=== PATIENT | male | born 1940 | race Caucasian/White ===

== ENCOUNTER → 2016-10-18 | Outpatient (CLI) | payer OTHER | LOC: FIMAGING 10:18 | PROVIDERS: ATTEND Internal Medicine Critical Care Medicine | DX: R91.1 Solitary pulmonary nodule (principal) ==

== ENCOUNTER → 2017-04-04 | Outpatient (CLI) | payer OTHER | LOC: BHFA 09:00 | PROVIDERS: ATTEND Internal Medicine Cardiovascular Disease | DX: I48.91 Unspecified atrial fibrillation (principal) ==

== ENCOUNTER 2017-06-14 09:02 | Observation (INO) | payer OTHER ==
[2017-06-14] MEDS ORDERED: NS 1,000 ML IV ONE (09:03)
[2017-06-14] MEDS ORDERED: DIAZEPAM 5 MG TAB PO ONE (09:03)
[2017-06-14] MEDS ORDERED: ceFAZolin 2 GM/SWFI 2 GM/20 ML SYR IVP ONE (09:03)
[2017-06-14] MEDS ORDERED: BACITRACIN IRRIGATION/NS 50,000 UNITS/1,000 ML BTL IRR ONE (09:03)
[2017-06-14] MEDS ORDERED: diphenhydrAMINE 25 MG CAP PO ONE ×2 (09:03→09:30)
--- NOTE | 2017-06-14 09:19 | PDHPUP ---
History & Physical Update H&P update statement: This history and physical update is based on an assessment of the patient which was completed after admission or registration (within 24 hours), but prior to the surgery/procedure. H&P update: H&P reviewed & patient examined, no change in patient's condition since H&P completed
--- NOTE | 2017-06-14 09:19 | PDPROPOC ---
Sedation Plan of Care Sedation Plan of Care: vital signs stable, mental status noted, patient educated of risks, benefits, alternatives, patient can tolerate sedation ASA Classification: ASA 3 Planned drugs: fentanyl, midazolam Mallampati Score: Class 3 Mallampati Reference Image: Patient passed 3-3-2 rule?: Yes
--- NOTE | 2017-06-14 09:24 | CPEKG ---
Heart Rate: 65 RR Interval: 923 P-R Interval: 188 QRSD Interval: 80 QT Interval: 412 QTC Interval: 429 P [place]: 48 QRS [place]: 10 T Wave [place]: 70 EKG Severity - ABNORMAL ECG - EKG Impression: SINUS RHYTHM EKG Impression: MULTIPLE VENTRICULAR PREMATURE COMPLEXES Electronically Signed By: Batool Jarrell 14-Jun-2017 10:37:20
[2017-06-14] MEDS ORDERED: DIAZEPAM 5 MG TAB ONE (09:30)
[2017-06-14 09:47] LABS: % IMMATURE GRANULYOCYTES 0.2 % (0.0-1.1); ABSOLUTE IMMATURE GRANULOCYTES 0.01 10^3/uL (0.00-0.10); ADD DIFF? NO; ADD MORPH? NO; ADD SCAN? NO; ATYPICAL LYMPHOCYTE FLAG 10 (0-99); FRAGMENT RBC FLAG 0 (0-99); HEMATOCRIT 43.5 % (40.0-51.0); HEMOGLOBIN 15.6 g/dL (13.7-17.5); LEFT SHIFT FLG 0 (0-99); LIPEMIA HEMOLYSIS FLAG 90 (0-99); MEAN CELL HEMOGLOBIN 32.9 pg (27.9-34.1); MEAN CELL HEMOGLOBIN CONCENTR. 35.9 g/dL (32.4-36.7); MEAN CELL VOLUME 91.8 fL (81.5-99.8); MEAN PLATELET VOLUME 10.6 fL (8.7-11.7); PLATELET CLUMPS FLAG 0 (0-99); PLATELET COUNT 147 10^3/uL (150-400); RED BLOOD CELL COUNT 4.74 10^6/uL (4.40-6.38); RED CELL DISTRIBUTION WIDTH 14.3 % (11.5-15.2)
[2017-06-14 09:56] LABS: INR 1.12 (0.83-1.16); PROTIME(PATIENT) 14.6 SEC (12.0-15.0)
[2017-06-14 09:58] LABS: ANION GAP 12 mEq/L (8-16); CALCIUM 9.4 mg/dL (8.5-10.4); CARBON DIOXIDE 23 mEq/l (22-31); CHLORIDE 109 mEq/L (97-110); GLOMERULAR FILTRATION RATE > 60; GLUCOSE 111 mg/dL (70-100); POTASSIUM 4.3 mEq/L (3.5-5.2); SODIUM 144 mEq/L (134-144)
[2017-06-14] MEDS ORDERED: LIDOCAINE 1% 300 MG/30 ML SDV ONE (11:08)
[2017-06-14] MEDS ORDERED: fentaNYL 100 MCG/2 ML INJ ONE (11:08)
[2017-06-14] MEDS ORDERED: MIDAZOLAM 2 MG/2 ML VIAL ONE (11:08)
[2017-06-14] MEDS ORDERED: LIDO/EPI 1% **for epidural** 30 ML SDV ONE (11:09)
[2017-06-14] MEDS ORDERED: BUPIVACAINE 0.5% 30 ML SDV ONE (11:09)
[2017-06-14] MEDS ORDERED: IOPAMIDOL (ISOVUE-300) 150 ML BTL ONE (11:48)
--- NOTE | 2017-06-14 12:23 | EPPROC ---
Electrophysiology Procedure Note: PROCEDURE: MRI conditional dual-chamber pacemaker insertion. DATE OF PROCEDURE: 06/14/2017. DEVICE: Implanted is an Edora 8 -Aminah [id number], serial # [id number]. MRI conditional device. LEADS: The atrial lead is a Solia S 53, serial #[id number]. The ventricular lead is a Solia S 60, serial # [id number]. COMPLICATIONS: None CATTERY OPERATOR: David Abreu MD INDICATION AND APPROPRIATE USE CRITERIA: Symptomatic sick sinus syndrome severe sinus bradycardia with frequent pvc s requiring beta blockade PROCEDURE IN DETAIL: After informed consent was obtained and n.p.o. status was confirmed, the region of the left subclavicular fossa was cleaned, prepped and draped in a sterile fashion. Approximately 30 mL of 1% lidocaine was utilized for local anesthesia. The skin was sharply incised with a #10 blade. Electrocautery and local pressure were used for hemostasis. Sharp and blunt dissection was used to form a pacemaker pocket overlying the pectoralis major fascia. An 18-gauge Cook needle was used to gain access to the left subclavian vein x 2. J wires were advanced into the inferior vena cava. A 6-F peel-away sheath was advanced over the lateral wire. Wire and stylet were removed. Ventricular lead was manipulated with care into the RV apex under direct fluoroscopic guidance and screwed into place. Threshold was tested and found to be 0.6 V at 0.4 ms width. R-wave amplitude was measured at 9 mV. Lead impedance was 760 Ohms. The lead was sutured in place with #0 Ethibond. The medial wire was used to place a second peel-away sheath wire and dilator was removed and a second pacer lead was manipulated with care into the right atrial appendage and screwed into place. The threshold was 1.1 V at 0.4 ms width. P-wave amplitude was 1.2 mV, lead impedance was 468 Ohms. The peel away sheath was removed and the atrial lead was sutured in place with a #0 Ethibond. The pocket was thoroughly flushed and checked for bleeding. Hemostasis was established. The antibiotic soaked gauze was removed from the pocket. The atrial lead serial number was checked and placed in the upper pole lead housing of the pulse generator and set screw firmly applied. The procedure was repeated for the RV lead. The device was placed in the pocket and sutured in place with # 0 Ethibond. The skin was closed with a 3-layered 3-0 Vicryl, 2-0 Vicryl and 4-0 Monocryl repair with excellent wound edge opposition and hemostasis documented. The patient returned to the post cath recovery unit in good and stable condition where a stat postoperative chest x-ray and EKG will be obtained. FINAL IMPRESSION: Successful dual-chamber pacemaker insertion without immediate complication. Patient Problems: Problems Problem Status Onset Abdominal distention Acute Atrial fibrillation and flutter Acute Cellulitis Acute Ileus following gastrointestinal surgery Acute Near syncope Acute
--- NOTE | 2017-06-14 13:41 | CPEKG ---
Heart Rate: 75 RR Interval: 800 P-R Interval: 212 QRSD Interval: 82 QT Interval: 384 QTC Interval: 429 QRS [place]: -18 T Wave [place]: 76 EKG Severity - ABNORMAL ECG - EKG Impression: ATRIAL-PACED RHYTHM EKG Impression: BORDERLINE LEFT AXIS DEVIATION EKG Impression: BORDERLINE R WAVE PROGRESSION, ANTERIOR LEADS Electronically Signed By: Batool Jarrell 14-Jun-2017 17:02:18
[2017-06-14] MEDS ORDERED: FUROSEMIDE 40 MG TAB PO PRN (15:35)
[2017-06-14] MEDS ORDERED: FLUTICASONE NASAL PRN (15:35)
[2017-06-14] MEDS ORDERED: diphenhydrAMINE 25 MG CAP PO PRN (15:35)
[2017-06-14 15:43] VITALS: PULSE 75
[2017-06-14] MEDS ORDERED: ROSUVASTATIN CALCIUM 40 MG TAB PO SCH (21:00)
[2017-06-14] MEDS: ASPIRIN 81 MG CHEWABLE TAB PO SCH (21:39)
[2017-06-15 04:11] VITALS: O2SAT 96
[2017-06-15 05:28] LABS: % IMMATURE GRANULYOCYTES 0.1 % (0.0-1.1); ABSOLUTE IMMATURE GRANULOCYTES 0.01 10^3/uL (0.00-0.10); ADD DIFF? NO; ADD MORPH? NO; ADD SCAN? NO; ATYPICAL LYMPHOCYTE FLAG 0 (0-99); FRAGMENT RBC FLAG 0 (0-99); HEMATOCRIT 42.3 % (40.0-51.0); HEMOGLOBIN 14.7 g/dL (13.7-17.5); LEFT SHIFT FLG 0 (0-99); LIPEMIA HEMOLYSIS FLAG 90 (0-99); MEAN CELL HEMOGLOBIN 32.2 pg (27.9-34.1); MEAN CELL HEMOGLOBIN CONCENTR. 34.8 g/dL (32.4-36.7); MEAN CELL VOLUME 92.8 fL (81.5-99.8); MEAN PLATELET VOLUME 11.3 fL (8.7-11.7); PLATELET CLUMPS FLAG 20 (0-99); PLATELET COUNT 141 10^3/uL (150-400); RED BLOOD CELL COUNT 4.56 10^6/uL (4.40-6.38); RED CELL DISTRIBUTION WIDTH 14.5 % (11.5-15.2)
[2017-06-15 05:38] LABS: ANION GAP 10 mEq/L (8-16); CALCIUM 8.8 mg/dL (8.5-10.4); CARBON DIOXIDE 24 mEq/l (22-31); CHLORIDE 107 mEq/L (97-110); CREATININE 0.9 mg/dL (0.7-1.3); GLOMERULAR FILTRATION RATE > 60; GLUCOSE 88 mg/dL (70-100); POTASSIUM 4.3 mEq/L (3.5-5.2); SODIUM 141 mEq/L (134-144)
[2017-06-15 07:33] VITALS: BP 129/78; RESP 17; TEMP 97.8
[2017-06-15] MEDS: ASPIRIN 81 MG CHEWABLE TAB PO SCH (08:18)
--- NOTE | 2017-06-15 08:54 | CPEKG ---
Heart Rate: 75 RR Interval: 800 P-R Interval: 188 QRSD Interval: 80 QT Interval: 376 QTC Interval: 420 QRS [place]: -9 T Wave [place]: 76 EKG Severity - ABNORMAL ECG - EKG Impression: ATRIAL-PACED RHYTHM EKG Impression: BORDERLINE R WAVE PROGRESSION, ANTERIOR LEADS Electronically Signed By: Batool Jarrell 15-Jun-2017 10:49:23
--- NOTE | 2017-06-15 08:58 | ASMTCMCOM ---
CM Note CM Note Notes: Chart reviewed. Patient s/p PPM. No needs identified. Anticipate dc to home Independent. CM available should needs arise. Date Signed: 06/15/2017 08:58 AM Electronically Signed By:Geraldine Eden RN
[2017-06-15] MEDS ORDERED: MELOXICAM 7.5 MG PO SCH (09:00)
[2017-06-15] MEDS ORDERED: VERAPAMIL 80 MG TAB PO SCH (09:00)
--- NOTE | 2017-06-15 09:36 | GDS ---
[f rep st] DISCHARGE SUMMARY ADMISSION DIAGNOSES: 1. Symptomatic bradycardia. 2. Paroxysmal atrial fibrillation. 3. Hyperlipidemia. 4. Sleep apnea. DISCHARGE DIAGNOSES: 1. Symptomatic bradycardia status post permanent pacemaker implantation. Biotronik device with both with Biotronik atrial and ventricular leads. 2. Paroxysmal atrial fibrillation. 3. Hyperlipidemia. 4. Sleep apnea. PROCEDURES PERFORMED DURING HOSPITALIZATION: 1. Electrocardiogram. 2. Permanent pacemaker implantation with atrial and ventricular leads. Biotronik generator with Bio tronik atrial and ventricular leads. 3. Chest x-ray. 4. Pacemaker interrogation. BRIEF HISTORY: Please see H and P. Briefly, the patient is a 76-year-old male, he has been noticing significantly slower heart rates. He has recently been seen by Dr. Abreu, in which he has shown th at he has occasionally ventricular bigeminy with effective pulse rate of around 28 beats per minute. He has lightheadedness with these symptoms. After evaluation by Dr. Abreu, it was felt best that h e undergo permanent pacemaker implantation to help increase his heart rate and prevent any further ep isodes. HOSPITAL COURSE: The patient admitted through CVC, prepped for procedure, taken to the cardiac keren terization lab. There, Dr. Abreu successfully implanted a dual-chamber Biotronik pacemaker with atr ial and ventricular leads. No complications. The patient was taken back to the CVC and ultimately t o the PCU overnight. On the PCU, he has been noted to be atrial paced with intrinsic ventricular res ponse. He has been noted to have occasional PVC, small runs of bigeminy. He has been up and walking the unit, reporting that he has tolerated this well with no episodes of lightheadedness or shortness of breath. He denies any chest pressure or pain. PHYSICAL EXAMINATION: GENERAL APPEARANCE: A medium built, well-groomed, male. He is aler t and oriented to person, place, time, situation. Appears to be under no acute distress. VITAL SIGN S: Current vital signs are blood pressure 128/70, heart rate 75, respirations 17, saturating 95% on room air, temperature 36.6 degrees Celsius. HEENT: Head is normocephalic. Lips and tongue are pink moist with no signs of cyanosis. Conjunctivae pink. NECK: Trachea is midline, +2 carotid pulses b ilateral. No auscultated bruits. No jugular vein distention. RESPIRATORY: Lungs clear to ausculta tion, no rhonchi, rales or wheezes. No accessory muscle use. No intercostal muscle retraction noted . CARDIAC: Regular rate, regular rhythm. S1, S2. No S3, S4, gallops, rubs or murmurs noted. ABDO MEN: Soft, nontender, bowel sounds x4 quadrants. No organomegaly. No palpable masses. SKIN: [place] , warm, dry. No cyanosis. No clubbing. No peripheral edema. VASCULAR: +2 carotids bilateral, +2 radials bilateral, +2 dorsal pedal and posterior tibial pulses bilateral. PACEMAKER INSERTION: Left anterior chest, distal to the clavicle lateral chest. Incision intact with Steri-Strips. No rednes s, swelling, drainage, ecchymosis, or hematoma. Device dressing change done at this time. STUDIES: Laboratory studies drawn today show WBC 7.08, hemoglobin 14.7, hematocrit of 42.3, platelet count of 141, sodium 141, potassium 4.3, chloride 107, CO2 24, BUN 18, creatinine 0.9, glucose 88, c alcium 8.8. Cardiac pacemaker implantation done as mentioned above. Electrocardiogram done this morning showing atrial pace with intrinsic ventricular response showing l eft axis deviation with nonspecific T-wave abnormalities in inferior lateral leads. Chest x-ray is done, interpreted by myself, showing pacemaker in adequate position. No delayed pneum othorax. Home monitoring interrogation of pacemaker device done by [email or web address] rep today showing thresholds less than 1. R-waves greater than 10. Device functioning within normal limits. Biotronik rep will come in prior to the patient's discharge to do a full interrogation of the device. DISCHARGE DISPOSITION: The patient will be discharged home in stable condition. He is under activit y restrictions of not lifting the left arm higher than shoulder height for the next 6 weeks and not l ifting more than 10 pounds with the left arm for the next 6 weeks. DISCHARGE MEDICATIONS: Please see discharge med reconciliation sheet. DISCHARGE INSTRUCTIONS: Post pacemaker discharge instructions went over with the patient and his wif e, including monitoring for signs of infection, bleeding precautions, activity restrictions. The pat ient has a followup appointment for a device and wound check in our office next on the at 10:00 a.m. he will also follow up with one of our nurse practitioners on July 06, 2017. At the time of discharge, the patient and both verbalized understanding all instructions, have no questions. T hey are told if any problems or concerns, they are to contact our office or return to the hospital. Total time spent on discharge greater than 30 minutes. /[id number]/MODL
--- NOTE | 2017-06-15 15:36 | ASDISCHSUM ---
Discharge Information Plan Status:Home with No Needs Medically Cleared to Leave: Discharge Date:06/15/2017 10:33 AM CM D/C Disposition:Home, Routine, Self-Care ADT D/C Disposition:Home, Routine, Self-Care Projected Discharge Date:06/15/2017 10:33 AM Transportation at D/C:Family Discharge Delay Reason: Follow-Up Date:06/15/2017 10:33 AM Discharge Slot: Final Diagnosis: Placement Information Patient Contact Information Contact Name:BILLY Relationship: Address:[address] [place] [address] City:[place] Alternate Phone: State/Zip Code:[place] [address] Email: Financial Information Financial Class: Primary Plan Desc:MEDICARE OUTPATIENT Primary Plan Number:[id number] Secondary Plan Desc:MARY INDEMNITY Secondary Plan Number:[id number] Assessment Information [facility] CM Progress Note CM Note CM Note Notes: Chart reviewed. Patient s/p PPM. No needs identified. Anticipate dc to home Independent. CM available should needs arise. Date Signed: 06/15/2017 08:58 AM Electronically Signed By:Geraldine Eden RN Intervention Information Intervention Type:*RESTREPO-Signed Date of Service:06/15/2017 11:05 AM Patient Type:Observation Staff Member:Xiomy Mckinnon Hours: Discipline: Severity: Comment:
== END 2017-06-15 10:33 | disposition home or self-care (01) ==
LOC: FCATH 09:02 → F2W 12:57
PROVIDERS: ADMIT Internal Medicine Cardiovascular Disease; ATTEND Internal Medicine Cardiovascular Disease
PROC: 02HK3JZ Insertion of Pacemaker Lead into Right Ventricle, Percutaneous Approach (ICD-10-PCS; principal; 2017-06-14)
PROC: 0JH606Z Insertion of Pacemaker, Dual Chamber into Chest Subcutaneous Tissue and Fascia, Open Approach (ICD-10-PCS; principal; 2017-06-14)
PROC: 02H63JZ Insertion of Pacemaker Lead into Right Atrium, Percutaneous Approach (ICD-10-PCS; principal; 2017-06-14)
DX: I49.5 Sick sinus syndrome (principal); I48.0 Paroxysmal atrial fibrillation; R00.1 Bradycardia, unspecified; E78.5 Hyperlipidemia, unspecified; G47.30 Sleep apnea, unspecified
CPT/HCPCS: 33208; 71010; 71020; 93005; J0690; J2250; J3010; Q9967

== ENCOUNTER 2018-03-11 11:46 | Observation (INO) | payer OTHER ==
--- NOTE | 2018-03-11 11:56 | EDPHY ---
H & P Time Seen by Provider: 03/11/18 11:47 HPI/ROS: CHIEF COMPLAINT: Confusion and difficulty with words HISTORY OF PRESENT ILLNESS: Last known normal was 10:15 a.m. Today. His brought him in because he was confused having difficulty finding words. 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 Patient said he knew what he wanted to say but could not speak the words. In the emergency department he feels like he is really back to normal except he feels"a little bit spacey." Not associated with headache or inability to walk or vertigo or neck pain. REVIEW OF SYSTEMS: Eye: no change in vision ENT: no sore throat Cardiac: no chest pain or syncope Pulmonary: no cough or SOB Abdomen: no vomiting, diarrhea, abdominal pain Musculoskeletal: no back pain Skin: no rash Neuro: HPI Constitutional: no fever : no urinary symptoms A comprehensive 10 point review of systems is otherwise negative aside from elements mentioned in the history of present illness. PAST MEDICAL HISTORY: Atrial fibrillation with ablation in 2016, sleep apnea, hearing aids, appendectomy, surgery on right shoulder hernia and vasectomy. Pacemaker. Social history: Here with his General Appearance: Alert and conversant, cooperative. Eyes: No scleral icterus. Pupils equal reactive extraocular motion intact no nystagmus. ENT, Mouth: Normal mucous membranes. Respiratory: Normal respiratory effort, breath sounds equal, lungs are clear to auscultation. Cardiovascular: Regular rate and rhythm. Gastrointestinal: Abdomen is soft and non tender. Neurological: Alert, face symmetric, normal motor and sensory in extremities. Speech fluent, can name a pen and eyeglasses. Visual knight intact to confrontation. Extraocular motion intact. 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 Speech is fluent. He does know his name and says he is 78 years old and knows the month and the date and the day of the week. He knows how he got here. Skin: Warm and dry, no rashes. Musculoskeletal: No peripheral edema. Psychiatric: Not agitated. Emergency Department course/MDM: Patient answers 78 instead of 77 says his age but otherwise does not have any focal neurologic deficits now. Would not make him a stroke alert due to rapid resolution of symptoms, no discernible significant neurologic deficit in the ED on arrival. Stroke workup performed, probable admission for TIA. 1238: CT negative per Dr. Amaya, discussed with the and she says"he is totally normal now." Admission for monitoring, TIA workup. Smoking Status: Never smoked Constitutional: Initial Vital Signs Temperature (C) 36.8 C 03/11/18 11:53 Heart Rate 80 03/11/18 11:53 Respiratory Rate 16 03/11/18 11:53 Blood Pressure 171/101 H 03/11/18 11:53 O2 Sat (%) 94 03/11/18 11:53 O2 Delivery Mode Room Air Allergies/Adverse Reactions: tetanus immune globulin Allergy (Verified 01/04/16 01:03) Home Medications: Medication Instructions Recorded Ascorbic Acid [Vitamin C 500 mg 500 mg PO DAILY 06/08/17 (*)] Aspirin [Aspirin 81mg (*)] 81 mg PO BID 06/08/17 Cholecalciferol Vit D3 [Vitamin D3 2,000 units PO DAILY 06/08/17 2000 units tab (OTC)] Fluticasone Nasal [Flonase Nasal 1 sprays NASAL DAILY PRN 06/08/17 [place]] Furosemide [Lasix 40 MG (*)] 40 mg PO DAILY PRN 06/08/17 [place]/Supplements -Info Only 1 ea PO DAILY 06/08/17 Ibuprofen [Motrin (*)] 200 mg PO DAILY PRN 06/08/17 Loratadine [Claritin] 10 mg PO DAILY 06/08/17 Meloxicam 7.5 mg PO DAILY 06/08/17 Multivitamins [Multivitamin (*)] 1 each PO DAILY 06/08/17 [place]-3 Fatty Acids [Fish Oil 1000 1,000 mg PO DAILY 06/08/17 mg (*)] Rosuvastatin Calcium [Crestor 40mg 40 mg PO HS 06/08/17 (*)] Sildenafil Citrate [Viagra 50 MG 50 mg PO DAILY PRN 06/08/17 (*)] Verapamil [Calan 80MG (*)] 80 mg PO DAILY 06/08/17 diphenhydrAMINE [Benadryl 25 MG 25 mg PO DAILY PRN 06/08/17 (*)] Medical Decision Making - Diagnostics EKG Interpretation: 12-lead EKG interpreted by me; official reading is in computer system. My interpretation is av dual paced at 83. Imaging Results: Imaging Impressions Head CT 03/11/18 12:06 Impression: 1. No acute intracranial hemorrhage or evidence of acute cortical ischemia. 2. Mild atrophy. 3. Mild sinus disease. Findings discussed with Emergency Department physician, Dr. Alejandro Maldonaod on March 11, 2018 at 1237 hours. Imaging: Discussed imaging studies w/ order desk caller Radiologist Consult/Admit Bed Type: [place] [id number] - Data Points Laboratory Results: Laboratory Results 03/11/18 12:04 03/11/18 12:04 03/11/18 03/11/18 03/11/18 12:19 12:04 12:04 WBC RBC Hgb Hct MCV MCH MCHC RDW Plt Count MPV Neut % (Auto) Lymph % (Auto) [place] % (Auto) Eos % (Auto) Baso % (Auto) Nucleat RBC Rel Count Absolute Neuts (auto) Absolute Lymphs (auto) Absolute Monos (auto) Absolute Eos (auto) Absolute Basos (auto) Absolute Nucleated RBC Immature Gran % Immature Gran # PT 15.0 SEC SEC (12.0-15.0) INR 1.16 (0.83-1.16) Sodium 139 mEq/L mEq/L (135-145) Potassium 4.4 mEq/L mEq/L (3.3-5.0) Chloride 107 mEq/L mEq/L (97-110) Carbon Dioxide 24 mEq/l mEq/l (22-31) Anion Gap 8 mEq/L mEq/L (8-16) BUN 16 mg/dL mg/dL (7-23) Creatinine 0.8 mg/dL mg/dL (0.7-1.3) Estimated GFR > 60 Glucose 148 mg/dL H mg/dL (70-100) Calcium 9.5 mg/dL mg/dL (8.5-10.4) POC Troponin I 0.01 ng/mL ng/mL (0.00-0.08) 03/11/18 12:04 WBC 5.73 10^3/uL 10^3/uL (3.80-9.50) RBC 4.70 10^6/uL 10^6/uL (4.40-6.38) Hgb 15.2 g/dL g/dL (13.7-17.5) Hct 43.6 % % (40.0-51.0) MCV 92.8 fL fL (81.5-99.8) MCH 32.3 pg pg (27.9-34.1) MCHC 34.9 g/dL g/dL (32.4-36.7) RDW 13.9 % % (11.5-15.2) Plt Count 160 10^3/uL 10^3/uL (150-400) MPV 10.2 fL fL (8.7-11.7) Neut % (Auto) 62.3 % % (39.3-74.2) Lymph % (Auto) 25.0 % % (15.0-45.0) [place] % (Auto) 10.6 % % (4.5-13.0) Eos % (Auto) 1.2 % % (0.6-7.6) Baso % (Auto) 0.7 % % (0.3-1.7) Nucleat RBC Rel Count 0.0 % % (0.0-0.2) Absolute Neuts (auto) 3.57 10^3/uL 10^3/uL (1.70-6.50) Absolute Lymphs (auto) 1.43 10^3/uL 10^3/uL (1.00-3.00) Absolute Monos (auto) 0.61 10^3/uL 10^3/uL (0.30-0.80) Absolute Eos (auto) 0.07 10^3/uL 10^3/uL (0.03-0.40) Absolute Basos (auto) 0.04 10^3/uL 10^3/uL (0.02-0.10) Absolute Nucleated RBC 0.00 10^3/uL 10^3/uL (0-0.01) Immature Gran % 0.2 % % (0.0-1.1) Immature Gran # 0.01 10^3/uL 10^3/uL (0.00-0.10) PT INR Sodium Potassium Chloride Carbon Dioxide Anion Gap BUN Creatinine Estimated GFR Glucose Calcium POC Troponin I Point of Care Test Results: Chemistry 03/11/18 12:19 POC Troponin I 0.01 ng/mL ng/mL (0.00-0.08) Departure - Departure Disposition: [facility] Inpatient Acute Clinical Impression: Transient cerebral ischemia Qualifiers: Transient cerebral ischemia type: unspecified Qualified Code(s): G45.9 - Transient cerebral ischemic attack, unspecified Condition: Good Referrals: Josh Porras MD [Primary Care Provider] - As per Instructions
--- NOTE | 2018-03-11 12:18 | CPEKG ---
Test Reason : OPEN Blood Pressure : / mmHG Vent. Rate : 083 BPM Atrial Rate : 082 BPM P-R Int : 217 ms QRS Dur : 089 ms QT Int : 366 ms P-R-T Axes : -33 -05 060 degrees QTc Int : 430 ms A-V dual-paced complexes w/ some inhibition Confirmed by Alejandro Maldonado ([id number]) on 03/11/2018 12:18:12 PM Referred By: Confirmed By:Alejandro Maldonado
[2018-03-11 12:28] LABS: PLATELET COUNT 160 10^3/uL (150-400)
[2018-03-11 12:35] LABS: INR 1.16 (0.83-1.16)
[2018-03-11] MEDS ORDERED: ASPIRIN 81 MG CHEWABLE TAB PO ONE (15:38)
[2018-03-11] MEDS ORDERED: ONDANSETRON 4 MG/2 ML VIAL IVP PRN (15:43)
[2018-03-11] MEDS ORDERED: ACETAMINOPHEN 325 MG TAB PO PRN (15:43)
[2018-03-11] MEDS ORDERED: IOPAMIDOL (ISOVUE 370) 100 ML BTL IV ONE (15:58)
--- NOTE | 2018-03-11 16:20 | GHP ---
DATE OF ADMISSION: 03/11/2018 CHIEF COMPLAINT: Aphasia. HISTORY OF PRESENT ILLNESS: The patient a 77-year-old male who was last seen normal by his at 1 0:15 a.m. this morning. He subsequently developed difficulty finding words. He describes both an ex pressive aphasia as well as a little bit of a receptive aphasia. The whole thing lasted 50 minutes, and while he was in the emergency room he returned back to normal mental status. Therefore, a stroke alert was not called due to resolution of deficits. After he got up to the floor he did realize jewel t he does have a little bit of residual left facial numbness, and feels like maybe his face is droopi ng a little bit, but he thinks this is not new and was probably present during the event, but he just is noticing it now that he is "coming out of the fog." The patient has a history of atrial fibrillation, status post previous ablation. He was on blood thi nners prior to his ablation. After his ablation he required a pacemaker. This is interrogated regul tigist and there has never been any evidence of atrial fibrillation on his pacemaker post ablation; the refore, he has remained off anticoagulation is on aspirin alone. PAST MEDICAL HISTORY: 1. Atrial fibrillation status post ablation, now with pacemaker. 2. Hypertension. 3. Central sleep apnea, on VPAP. 4. Osteoarthritis. PAST SURGICAL HISTORY: 1. Appendectomy with abscess. 2. Hernia. MEDICATIONS: Please see computer record for full detailed list. ALLERGIES: Tetanus. SOCIAL HISTORY: No smoking. He drinks 1 beer or wine with meals. He lives with his . REVIEW OF SYSTEMS: Complete review of systems obtained. Review of systems negative regarding consti tutional, HEENT, GI, pulmonary, cardiovascular, , hematology, skin, muscle, endocrine and psych exc ept for positives and negatives as in the HPI. FAMILY HISTORY: Reviewed, noncontributory to presenting complaint. PHYSICAL EXAMINATION: GENERAL: Well-developed, well-nourished male in no acute distress. VITAL SIG NS: Temperature is 36.6, pulse 80, blood pressure 153/93, saturating 97% on room air. EYES: Normal conjunctivae. Pupils react to light. ENT: Normal ears, nose. Hearing intact. Normal lips and te eth. Oropharynx moist. NECK: Trachea midline. No thyromegaly. CHEST: Normal respiratory effort. LUNGS: Clear to auscultation bilaterally. CARDIOVASCULAR: Regular rhythm. No murmur. No lower ex tremity edema. ABDOMEN: Soft, nontender. No hepatosplenomegaly. SKIN: Warm, dry, intact. No wilmar h. MUSCULOSKELETAL: No cyanosis or clubbing. Strength 5/5 upper and lower extremities. NEUROLOGIC : Cranial nerves: He has a very slight left-sided facial droop with some subjective facial numbness . His tongue is midline. Otherwise, normal sensation to light touch. PSYCHIATRIC: He is alert, or iented x3. Normal affect. Normal judgment and insight. Normal memory. LABORATORY DATA: White count 5.73, hematocrit 43.6, platelets 160. Sodium 139, potassium 4.4, chlor radha 107, bicarb 24, BUN 16, creatinine 0.8, glucose 148. Troponin is negative. INR is 1.16. EKG viewed by me and my personal interpretation is paced rhythm. Head CT is negative. ASSESSMENT/PLAN: 1. Transient ischemic attack versus very small stroke, as he does have some residual left-sided faci al numbness and possible mild left facial droop. He does have an MRI-compatible pacemaker so, if pos sible, will attempt an MRI of the brain. We will check a CT angiogram of the head and neck as well a s an echocardiogram. Check lipids. Continue with aspirin for now, but continue to look for evidence of atrial fibrillation. I will have his pacemaker interrogated. 2. Atrial fibrillation status post ablation, now with pacemaker. No evidence of atrial fibrillation since the pacemaker has been placed, therefore, off anticoagulation. 3. Central sleep apnea. Continue VPAP. 4. Hypertension: Continue verapamil and metoprolol. CORE STATUS: Full. ADMISSION STATUS: Will admit to observation. Re-evaluate tomorrow regarding ongoing need for hospit alization. DVT PROPHYLAXIS: He is high risk. Will place on subcu Lovenox. /[id number]/MODL
--- NOTE | 2018-03-11 19:04 | ECHO ---
[email or web address] [address] [address] Main: [phone] Fax: Transthoracic Echocardiogram Name: MAGALIS RUVALCABA MR#: [id number] Study Date: 03/11/2018 Study Time: 04:02 PM Date of : 1940 Age: 77 year(s) Height: 185.4 cm (73 in.) Weight: 90.72 kg (200 lb.) BSA: 2.15 m2 Gender: Male Examination: Echo Indication: TIA, Hx of Pacemaker, Ablation Image Quality: Contrast: Requested by: Maddie Gonzalez BP: / Heart Rate: Rhythm: Tachycardia Indication: TIA, Hx of Pacemaker, Ablation Procedure Staff Taxi Driver: Ozzie Olivier RDCS Reading Physician: Nicolás Vega MD Requesting Provider: Conclusions: Normal size left ventricle. No LV hypertrophy. Normal global systolic LV function. EF is 64 %. No regional wall motion abnormality. Diastolic dysfunction is present. . Trivial to mild mitral regurgitation. The tricuspid valve is normal in appearance and function. There is no evidence of a PFO by colorflow doppler and Previous JERRICA from 10/13/2015 injection of contrast documented no interatrial shunt.. Measurements: Chambers Valvular Assessment AV/MV Valvular Assessment TV/PV Normal Normal Normal Name Value Range Name Value Range Name Value Range Ao Jeanna (MM): 3.5 cm (2.2 cm-3.7 AV Vmax: 1.83 m/s (1 m/s-1.7 PV Vmax: 0.72 m/s (0.6 m/s-0.9 cm) m/s) m/s) IVSd (2D): 1.1 cm (0.6 cm-1.1 AV maxP mmHg ( - ) PV PGmax: 2 mmHg ( - ) cm) LVOT Vmax: 0.78 m/s (0.7 m/s-1.1 LVDd (2D): 4.9 cm (4.2 cm-5.9 m/s) cm) MV E Vmax: 0.78 m/s ( - ) LVDs (2D): 3.2 cm (2.1 cm-4 MV A Vmax: 0.80 m/s ( - ) cm) MV E/A: 0.98 ( - ) LVPWd (2D): 1.0 cm (0.6 cm-1 cm) LVEF (2D): 64 (>=54 %) Continued Measurements: Chambers Valvular Assessment AV/MV Patient: MAGALIS RUVALCABA Study Date: 03/11/2018 Page 1 of 2 04:02 PM Name Value Name Value LADs Lon.3 cm MV E' Septal: 0.05 m/s LA Area: 18.7 cm2 MV E/E' Septal: 16.60 MV E/E' Lateral: 13.50 Findings: Left Ventricle: Normal size left ventricle. No LV hypertrophy. Normal global systolic LV function. EF is 64 %. No regional wall motion abnormality. Diastolic dysfunction is present. . Right Ventricle: Normal size right ventricle. Normal RV function. There is a pacemaker lead noted in the right ventricle. Left Atrium: The left atrium is normal in size. Right Atrium: The right atrium is normal in size. Mitral Valve: The mitral valve is normal in appearance and function. Trivial to mild mitral regurgitation. Aortic Valve: The aortic valve is tri-leaflet and functions normally. There is no aortic valve regurgitation. Tricuspid Valve: The tricuspid valve appears normal. The tricuspid valve is normal in appearance and function. Pulmonic Valve: The pulmonic valve is normal in appearance and function. Aorta: The aorta is normal. Pericardium: No pericardial effusion. Exam Comments: There is no evidence of a PFO by colorflow doppler and Previous JERRICA from 10/13/2015 injection of contrast documented no interatrial shunt.. (No Signature Object) Patient: MAGALIS RUVALCABA Study Date: 03/11/2018 Page 2 of 2 04:02 PM [id number]
[2018-03-11] MEDS: METOPROLOL TARTRATE 25 MG TAB PO SCH (20:53)
[2018-03-11] MEDS: ASPIRIN 81 MG CHEWABLE TAB PO SCH (20:54)
[2018-03-11] MEDS ORDERED: ROSUVASTATIN CALCIUM 20 MG TAB PO SCH (21:00)
[2018-03-12] MEDS: ASPIRIN 81 MG CHEWABLE TAB PO SCH (08:35)
[2018-03-12] MEDS: METOPROLOL TARTRATE 25 MG TAB PO SCH (08:36)
[2018-03-12] MEDS ORDERED: VERAPAMIL 80 MG TAB PO SCH (09:00)
[2018-03-12] MEDS ORDERED: MELOXICAM 7.5 MG PO SCH (09:00)
[2018-03-12] MEDS ORDERED: ENOXAPARIN 40 MG/0.4 ML SYR SC SCH (09:00)
[2018-03-12] MEDS ORDERED: ASCORBIC ACID 500 MG TAB PO SCH (09:00)
--- NOTE | 2018-03-12 11:27 | NEUROPROG ---
Assessment: I will plan on seeing the patient this afternoon after clinic is finished. Call for any questions. Objective: Vital Signs Temp Pulse Resp BP Pulse Ox 36.4 C 82 17 123/74 H 92 03/12/18 07:26 03/12/18 08:36 03/12/18 07:26 03/12/18 08:36 03/12/18 07:26 PT 15.0 SEC (12.0-15.0) 03/11/18 12:04 INR 1.16 (0.83-1.16) 03/11/18 12:04 Allergies/Adverse Reactions: tetanus immune globulin Allergy (Verified 01/04/16 01:03)
--- NOTE | 2018-03-12 14:38 | ASMTCMCOM ---
CM Note CM Note Notes: Reviewed chart/therapy recs and met with patient and regarding discharge plan of care. Patient feels he is doing quite well and does not anticipate having any needs upon discharge. He is eager to meet with the Neurologist and hopeful for a discharge home soon. Therapy has cleared safe to return home. No needs identified at this time. CM available should something change. Plan: Independent Date Signed: 03/12/2018 02:38 PM Electronically Signed By:Dana Pichardo RN
[2018-03-12 15:47] VITALS: BP 128/81
[2018-03-12] MEDS ORDERED: CLOPIDOGREL BISULFATE 75 MG TAB PO SCH (16:45)
--- NOTE | 2018-03-12 18:31 | NEUROPROG ---
Assessment: [id number] - Neurology Consult: - CC: Speech Difficulties - HPI: Pt developed word finding difficulties suddenly the morning of 03/11/18. Symptoms lasted 50 minutes then resolved. He also felt he had some slight left facial numbness and facial droop but he feels that may be long-standing. He has a history of afib status post ablation. He also has a pacemaker. He is not currently on anticoagulation as previous interrogation of the pacemaker showed no afib following his ablation. I initially saw the patient on 03/12/18. His neurologic exam was normal on 03/12/18 with an NIH SS of 0. Brain MRI w/o con normal. I felt he had a TIA so I recommended changing aspirin to plavix 75 mg qd. His LDL was 64 and CTA head/neck was unremarkable. Pt was told pacemaker interrogation yesterday showed no afib during his symptoms so afib does not appear to be the cause of his TIA. Pt was told to f/u with me in 1-4 weeks in neurology clinic. - PMHx: afib status post ablation, pacemaker, HTN, sleep apnea, OA, appi, hernia - SHx: no tobacco use FHx: NC - ROS: Pt denied acute fever, total vision loss, active severe chest pain, respiratory failure, total body severe rash, total bowel/bladder incontinence, psychosis, active seizures, or active bleeding - O: VS reviewed General: Alert Eyes: Fundoscopic exam not able to visualize optic disks CV: Heart RRR, no murmur, no carotid bruit Lungs: Clear to auscultation bilaterally, no rhonchi or rales Neuro: - Mental: . Oriented x person/place/date . concentration appears normal . speech fluency/comprehension normal . memory appears normal . fund of knowledge appear intact - Cranial Nerves: . II: PERRL, VFFTC . III/IV/: EOMI, no nystagmus, normal smooth pursuits, no Ptosis . V: facial sensation intact to LT . VII: face symmetric to eye closure and smile . VIII: hearing intact to conversation . IX/X: uvula raises symmetrically . XI: SCM 5/5 B/L strength . XII: tongue protrudes midline w/nl strength - Motor: . Tone: normal tone in all 4 extremity . 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 TIA causing 50 minutes of word finding issues on 03/11/18: Pt developed word finding difficulties suddenly the morning of 03/11/18. Symptoms lasted 50 minutes then resolved. He also has a pacemaker. His neurologic exam was normal on 03/12/18 with an NIH SS of 0. Brain MRI was normal. I felt he had a TIA so I recommended changing aspirin to plavix 75 mg qd. His LDL was 64 and CTA head/neck was unremarkable. Pt was told pacemaker interrogation showed no afib during his symptoms so afib does not appear to be the cause of his TIA/ small CVA. Pt was told to f/u with me in 1-4 weeks in neurology clinic. - Plan: - TIA occurred on aspirin so recommend changing to plavix 75 mg qd (aspirin failure) - PT/OT/Speech for any rehab needs - Work closely with PCM to ensure blood pressure < 140/90, H1AC < 7.0, and LDL < 70 (64) - F/U in neurology clinic in 1-4 weeks after hospital discharge . Objective: Vital Signs Temp Pulse Resp BP Pulse Ox 36.6 C 81 25 H 128/81 H 93 03/12/18 15:47 03/12/18 15:47 03/12/18 15:47 03/12/18 15:47 03/12/18 15:47 PT 15.0 SEC (12.0-15.0) 03/11/18 12:04 INR 1.16 (0.83-1.16) 03/11/18 12:04 Allergies/Adverse Reactions: tetanus immune globulin Allergy (Verified 01/04/16 01:03)
--- NOTE | 2018-03-12 19:05 | GDS ---
DISCHARGE DIAGNOSES: 1. Transient ischemic attack 2. Atrial fibrillation, status post ablation and pacemaker. 3. Central sleep apnea, on VPAP. 4. Hypertension. 5. Pulmonary nodule HISTORY: The patient is a 77-year-old male who presented with acute onset of expressive and receptive aphasia, as well as a left-sided facial droop. He has a history of atrial fibrillation and has been on Eliquis in the past; however, after his ablation and pacemaker, no further atrial fibrillation has been noted , so his Eliquis was discontinued, and he is now taking daily aspirin. He was admitted to the hospital, and tPA was not administered because he had rapid improvement in the emergency room. CT angiogram of the head and neck was unremarkable, as was echocardiogram. Pacemaker interrogation did not show any atrial fibrillation. MRI of the brain was ordered as he does have an MRI compatible device. MRI brain was negative, consistent with TIA. The plan is to change his aspirin to Plavix. He was seen by Dr. Martin during this hospitalization. DISCHARGE MEDICATIONS: Please see computerized record for full detailed list. New medications: 1. Plavix 75 mg p.o. daily to be taken instead of aspirin 81 mg p.o. b.i.d. 2. He will continue on Crestor 20 mg p.o. daily as his lipid panel is well controlled with an LDL of 64. ADDITIONAL DISCHARGE INSTRUCTIONS: 1. Follow-up neurology Dr. Martin 3-4 weeks 2. Follow-up pulmonary nodule seen on CT - 6 months Greater than 30 minutes' time was spent arranging this discharge. Patient was seen and examined by me on day of discharge. /[id number]/MODL MTDD
== END 2018-03-12 18:35 | disposition home or self-care (01) ==
LOC: F3N 14:36
PROVIDERS: ADMIT Internal Medicine; ATTEND Internal Medicine
DX: G45.9 Transient cerebral ischemic attack, unspecified (principal); Z86.79 Personal history of other diseases of the circulatory system; Z95.0 Presence of cardiac pacemaker; G47.31 Primary central sleep apnea; I10 Essential (primary) hypertension; R91.1 Solitary pulmonary nodule; Z79.82 Long term (current) use of aspirin; J32.0 Chronic maxillary sinusitis
CPT/HCPCS: 70450; 70496; 70498; 70551; 92523; 92610; 93005; 93306; 96372; 97161; 97165; 97530; 99285; G0378; G8978; G8979; G8980; G8987; G8988; G8989; G8996; G8997; G8998; G9168; G9169; G9170; J1650; Q9967; 84484-PO